=== PATIENT | male | born 1995 | race Caucasian/White ===

== ENCOUNTER 2023-06-05 17:08 | Emergency (ER) | payer SELFPAY ==
[~2023-06-05] VITALS: Ht 165.1 cm; Wt 111.6 kg
[2023-06-05 17:29] VITALS: BP 147/89; PULSE 73; RESP 16; TEMP 98.3; O2SAT 97
[2023-06-05] MEDS ORDERED: ALUMINUM HYD/MAG/SIMETHICONE 30 ML UDC PO ONE (18:25)
[2023-06-05] MEDS ORDERED: ONDANSETRON 4 MG ODT PO ONE (18:25)
[2023-06-05] MEDS ORDERED: FAMOTIDINE 20 MG TAB PO ONE (18:25)
[2023-06-05] MEDS ORDERED: FAMO-90 PO (19:02)
[2023-06-05] MEDS ORDERED: MAG-27 PO (19:02)
== END 2023-06-05 19:11 | disposition home or self-care (01) ==
LOC: MED 17:08
DX: K29.70 Gastritis, unspecified, without bleeding (principal); Z79.899 Other long term (current) drug therapy
CPT/HCPCS: 99284; Q0162